=== PATIENT | female | born 2000 | race Hispanic/Latino ===

== ENCOUNTER 2021-05-04 10:59 | Emergency (ER) | payer MEDICAID, SELFPAY ==
[2021-05-04 11:15] VITALS: BP 127/72; PULSE 84; RESP 16; TEMP 37.2; O2SAT 100
--- NOTE | 2021-05-04 11:17 | ED.URI ---
HPI - URI/Sore Throat General Chief Complaint: Upper Respiratory Infection Stated Complaint: Sore Throat,Ear Pain Time Seen by Provider: 05/04/21 11:40 Source: patient and RN notes reviewed Mode of arrival: ambulatory Limitations: no limitations History of Present Illness HPI Narrative: 20-year-old female presents with concern for 4-day history of bilateral ear pain, worse on the right, sore throat, cough. She denies of breath, fever, chills, body aches, sweats, nasal congestion, runny nose. She denies Covid vaccination. Reports she had family members with similar symptoms 2 weeks ago. She denies intervention. She denies nausea, vomiting, diarrhea. MD elicited complaint: sore throat Related Data Allergies Allergy/AdvReac Type Severity Reaction Status Date / Time No Known Allergies Allergy Verified 05/04/21 11:24 Review of Systems Review of Systems: CONSTITUTIONAL: Denies malaise, chills, sweats, or fever. EYES: Denies visual changes, redness, or discharge. ENT: Denies rhinorrhea, congestion, sinus pain. Reports and sore throat. CARDIOVASCULAR: Denies chest pain, palpitations, or edema. RESPIRATORY: Reports cough. Denies dyspnea. GASTROINTESTINAL: Denies abdominal pain, nausea, vomiting, diarrhea SKIN: Denies rash or itching. MUSCULOSKELETAL: Denies myalgia. NEUROLOGIC: Denies headache. All systems reviewed & are unremarkable except as noted in HPI and below PMFSH Comments At time of signature, agree with nursing past medical, surgical, social and family history. There is no relevant family history pertinent to the presenting complaint Exam Narrative: GENERAL: Well-appearing, well-nourished, and in no acute distress. HEAD: Normocephalic EYES: PERRLA, conjunctivae clear ENT: Nares clear. Mucous membranes moist. TM pearly nava with dull light reflex bilaterally; no tragal tenderness. Oropharynx erythematous without lesions. Tonsils not enlarged and without exudate, no drooling, no hoarseness, no trismus, uvula midline. NECK: Supple. No lymphadenopathy CHEST: Clear to auscultation, breath sounds equal. No wheezing, rhonchi, rales, or stridor. No respiratory distress, speaks in full sentences. HEART: Regular rate and rhythm. No murmur heard. SKIN: Warm, dry, no rash. NEURO: Alert and oriented x3. PSYCH: Normal mood and affect Course Course Emergency Course: Patient is aware of diagnosis, understands and agrees to treatment plan. Anticipatory guidance given. Patient agrees to follow-up as directed and is aware of reasons to seek care at the emergency department. Portions of this record may have been created with voice recognition software Vital Signs Vital signs: Vital Signs Temperature 99.0 F 05/04/21 11:15 Pulse Rate 84 05/04/21 11:15 Respiratory Rate 16 05/04/21 11:15 Blood Pressure 127/72 05/04/21 11:15 Pulse Oximetry 100 05/04/21 11:15 Temperature 99.0 F 05/04/21 11:15 Pulse Rate 84 05/04/21 11:15 Respiratory Rate 16 05/04/21 11:15 Blood Pressure 127/72 05/04/21 11:15 Pulse Oximetry 100 05/04/21 11:15 Reviewed. MDM - URI/Sore Throat MDM Narrative Medical decision making narrative: Differential diagnosis considered: Jefferson virus, strep pharyngitis, allergic rhinitis, upper respiratory tract infection, sinusitis, rhinosinusitis, nasopharyngitis. viral pharyngitis, otitis media, otitis externa, pneumonia, bronchitis, viral cough syndrome, viral syndrome, and influenza. Exam findings show no acute concerns or changes; patient is non-toxic appearing and is in no distress. Patient is appropriate for outpatient treatment and follow-up. Lab Data Attestation: I reviewed the patient's lab results. Critical Care Time Critical Care Time Critical Care Time: No Discharge Plan Discharge Clinical Impression: Upper respiratory infection Qualifiers: URI type: unspecified viral URI Qualified Code(s): J06.9 - Acute upper respiratory infection, unspecified Patient Disposition: Home,
== END 2021-05-04 12:07 | disposition home or self-care (01) ==
PROVIDERS: Emergency Provider Nurse Practitioner; PCP Registered Nurse
DX: J06.9 Acute upper respiratory infection, unspecified (principal); Z20.822 Contact with and (suspected) exposure to COVID-19
CPT/HCPCS: 87081; 87426; 87880; 99203; C9803; G0463

== ENCOUNTER 2021-06-01 16:28 | Emergency (ER) | payer MEDICAID, SELFPAY ==
[2021-06-01 16:39] VITALS: BP 120/73; PULSE 80; RESP 16; TEMP 36.3; O2SAT 100
--- NOTE | 2021-06-01 17:08 | ED.URI ---
HPI - URI/Sore Throat General Chief Complaint: Upper Respiratory Infection Stated Complaint: Sore Throat,Ear Pain Time Seen by Provider: 06/01/21 17:14 Source: patient and RN notes reviewed Mode of arrival: ambulatory Limitations: language barrier (Patient's cousin translates) History of Present Illness HPI Narrative: 20-year-old female presents with concern for sore throat, ear pain for 3 to 4 days. Reports exposure to Covid for weeks ago, reports illness 1 month ago and tested negative for Covid. Reports the symptoms have resolved. She reports taking ibuprofen with mild pain relief. She denies headache, nausea, vomiting, diarrhea. Reports chronic sinus congestion for which she recently started taking antihistamines. Denies cough, shortness of breath, loss of sense of taste or smell. MD elicited complaint: sore throat and other (Ear pain) Related Data Allergies Allergy/AdvReac Type Severity Reaction Status Date / Time No Known Allergies Allergy Verified 05/04/21 11:24 Review of Systems Review of Systems: CONSTITUTIONAL: Denies malaise, chills, sweats, or fever. EYES: Denies visual changes, redness, or discharge. ENT: Reports chronic rhinorrhea, congestion. Reports otalgia and sore throat. CARDIOVASCULAR: Denies chest pain, palpitations, or edema. RESPIRATORY: Denies cough or dyspnea. GASTROINTESTINAL: Denies abdominal pain, nausea, vomiting, diarrhea SKIN: Denies rash or itching. MUSCULOSKELETAL: Denies myalgia. NEUROLOGIC: Denies headache. All systems reviewed & are unremarkable except as noted in HPI and below PMFSH Comments At time of signature, agree with nursing past medical, surgical, social and family history. There is no relevant family history pertinent to the presenting complaint Exam Narrative: GENERAL: Well-appearing, well-nourished, and in no acute distress. HEAD: Normocephalic EYES: PERRLA, conjunctivae clear ENT: Nares clear. Mucous membranes moist. TM pearly nava with dull light reflex bilaterally; no tragal tenderness. Oropharynx erythematous without lesions. Tonsils enlarged and with copious ward exudate, no drooling, no hoarseness, no trismus, uvula midline. NECK: Supple. No lymphadenopathy CHEST: Clear to auscultation, breath sounds equal. No wheezing, rhonchi, rales, or stridor. No respiratory distress, speaks in full sentences. HEART: Regular rate and rhythm. No murmur heard. SKIN: Warm, dry, no rash. NEURO: Alert and oriented x3. PSYCH: Normal mood and affect Course Course Emergency Course: Patient is aware of diagnosis, understands and agrees to treatment plan. Anticipatory guidance given. Patient agrees to follow-up as directed and is aware of reasons to seek care at the emergency department. Portions of this record may have been created with voice recognition software Vital Signs Vital signs: Vital Signs Temperature 97.3 F L 06/01/21 16:39 Pulse Rate 80 06/01/21 16:39 Respiratory Rate 16 06/01/21 16:39 Blood Pressure 120/73 06/01/21 16:39 Pulse Oximetry 100 06/01/21 16:39 Temperature 97.3 F L 06/01/21 16:39 Pulse Rate 80 06/01/21 16:39 Respiratory Rate 16 06/01/21 16:39 Blood Pressure 120/73 06/01/21 16:39 Pulse Oximetry 100 06/01/21 16:39 Reviewed. MDM - URI/Sore Throat MDM Narrative Medical decision making narrative: Differential diagnosis considered: Jefferson virus, strep pharyngitis, allergic rhinitis, upper respiratory tract infection, sinusitis, rhinosinusitis, nasopharyngitis. viral pharyngitis, otitis media, otitis externa, pneumonia, bronchitis, viral cough syndrome, viral syndrome, and influenza. Exam findings show no acute concerns or changes; patient is non-toxic appearing and is in no distress. Patient is appropriate for outpatient treatment and follow-up. Lab Data Attestation: I reviewed the patient's lab results. Lab results narrative: Rapid Covid negative, rapid strep negative. Will presumptively treat for strep pending culture. Critical
== END 2021-06-01 17:46 | disposition home or self-care (01) ==
PROVIDERS: Emergency Provider Nurse Practitioner; PCP Registered Nurse
DX: J03.90 Acute tonsillitis, unspecified (principal); Z20.822 Contact with and (suspected) exposure to COVID-19
CPT/HCPCS: 87081; 87426; 87880; 99213; C9803; G0463

== ENCOUNTER 2024-01-02 02:34 | Emergency (ER) | payer OTHER, SELFPAY ==
--- NOTE | ~2024-01-02 | CT_ITS ---
Non-contrast Head CT History: Headache Technique: Axial non-contrast imaging of the brain was performed. Dose reduction technique was used on this scan by utilizing automated exposure control and iterative reconstruction technique. The dose -length product (DLP) was 605.33 mGy-cm. Findings: There is no evidence of intracranial hemorrhage, mass lesion, or acute infarct. Brain par enchyma appears normal. The ventricles and subarachnoid spaces are normal in size. The calvarium ap pears normal. The visualized paranasal sinuses and mastoid air cells are clear. Impression: No significant abnormality seen. Reviewed, dictated and finalized at location . Impression: No significant abnormality seen.
--- NOTE | ~2024-01-02 | CT_ITS ---
Noncontrast CT scan of the cervical spine Technique: Multiple contiguous axial [address] images of the cervical spine were obtained and rec onstructed in 2D sagittal and coronal planes on the acquisition scanner. Dose reduction technique was used on this scan by utilizing automated exposure control, adjustment of the mA and/or kV according to patient size. The dose-length product (DLP) was 413.47 mGy-cm. Clinical History: Pain Findings: No fractures or dislocations. Unremarkable visualized bony structures. The intervertebral disc spaces are preserved. No prevertebral soft tissue swelling. Impression: No fracture or subluxation of the cervical spine. Reviewed, dictated and finalized at location . Impression: No fracture or subluxation of the cervical spine.
[2024-01-02 02:38] VITALS: BP 123/75; PULSE 74; RESP 18; TEMP 36.6; O2SAT 100
--- NOTE | 2024-01-02 03:19 | ED.HA ---
HPI - Headache General Chief Complaint: Headache Stated Complaint: headache, N/V, earache Time Seen by Provider: 01/02/24 02:50 Source: patient Mode of arrival: ambulatory Limitations: no limitations History of Present Illness HPI Narrative: 23-year-old female presenting with chief complaint of headache. It has been an ongoing issue for almost 2 months now. She has been seen in multiple emergency rooms for the same symptoms. She also complains of left ear pain with drainage from her left ear as well as pain in the back of her neck. Headache is diffuse and intermittent. No vision changes but she says she gets dizzy occasionally. Related Data Allergies Allergy/AdvReac Type Severity Reaction Status Date / Time No Known Allergies Allergy Verified 01/02/24 02:42 Review of Systems Review of Systems: All systems reviewed & are unremarkable except as noted in HPI and below Exam Narrative: Constitutional: Generally well appearing, no acute distress Head: Atraumatic, no deformities. Eyes: Pupils equal, round, and reactive to light. Neck: Supple, no tracheal deviation, no JVD. ENMT: Mucous membranes moist. Left tympanic membrane shows bulging, effusion, erythema. Non perforated. Right TM is normal Cardiovascular: S1, S2 auscultated. No murmurs, rubs, or gallops. No S3/S4. Normal Distal pulses. No peripheral edema. Respiratory: Lung sounds equal. No wheezes, rales, or rhonchi. Gastrointestinal: Abdomen was soft and non-tender. Non-distended. No rebound or guarding. Genitourinary: Deferred Musculoskeletal: Normal muscle tone and bulk. No obvious deformities or tenderness over extremities. Skin: No rashes. Neurological: Strength 5/5 in extremities. Cranial nerves I-XII grossly intact. Distal sensation intact. Mental Status: Awake, alert and oriented x3. Follows commands Course Vital Signs Vital signs: Vital Signs Temperature 36.6 C 01/02/24 02:38 Pulse Rate 74 01/02/24 02:38 Respiratory Rate 18 01/02/24 02:38 Blood Pressure 123/75 01/02/24 02:38 Pulse Oximetry 100 01/02/24 02:38 Oxygen Delivery Room Air 01/02/24 02:38 Temperature 36.6 C 01/02/24 02:38 Pulse Rate 74 01/02/24 02:38 Respiratory Rate 18 01/02/24 02:38 Blood Pressure 123/75 01/02/24 02:38 Pulse Oximetry 100 01/02/24 02:38 Oxygen Delivery Room Air 01/02/24 02:38 MDM - Headache MDM Narrative Medical decision making narrative: Well-appearing 23-year-old female presenting for multiple complaints including headache for over 1 month, left ear pain and drainage, and a lump with pain in the back of her neck. On exam she has no evidence of any lump in the back of her neck but she has some mild tenderness around the C-spine upper region. She has some effusion and erythema on her left TM which look like otitis. Otherwise normal neurological exam and well-appearing. Patient is very anxious about her symptoms, wants extensive testing done so we will obtain CT imaging of head and C-spine, labs. Given migraine cocktail. Labs and imaging reviewed, all unremarkable. Patient has not vomited since she arrived. She appears very well. Stable for discharge. Given prescription for Augmentin for the ear infection as well as Zofran and naproxen. Pt feeling improved and would like to go home at this point. Return precautions were given to the patient include any new or worsening symptoms or development of and not limited to any chest pain, shortness of breath, lightheadedness, abdominal pain, fevers, chills. Patient understands and agrees. They are to follow-up with her PCP. All questions were answered. I reviewed the patient's vital signs, history, allergies, and labs and imaging workup. Lab Data 01/02/24 03:45 01/02/24 03:45 Labs: Lab Results 01/02/24 01/02/24 Range/Units 03:45 03:57 WBC 8.3 (4.5-10.0) K/mm3 RBC 4.28 (4.2-5.4) M/mm3 Hgb 11.5 L (12.0-15.0) g/dL Hct 34.7 L (
[2024-01-02] MEDS: SODIUM CHLORIDE 0.9% IV 1,000 ML 999 ML IV CONT (03:42)
[2024-01-02] MEDS: METOCLOPRAMIDE HCL INJ 10 MG/2 ML VIAL IV PUSH (03:43)
[2024-01-02] MEDS: KETOROLAC 15 MG/ML VIAL (*BKC) IV PUSH (03:43)
[2024-01-02 03:56] LABS: Basophils Percent Auto 0.2 % (0.2-1.2); Eosinophils Absolute Auto 0.1 K/mm3 (0-0.3); Hematocrit 34.7 % (37.0-47.0); Hemoglobin 11.5 g/dL (12.0-15.0); Immature Granulocyte Absolute 0.01 K/mm3 (0.00-0.031); Immature Granulocyte Percent A 0.1 % (0-0.5); Lymphocytes Absolute Auto 2.91 K/mm3 (0.9-3.2); Lymphocytes Percent Auto 35.1 % (18.3-44.2); Mean Corpuscular HGB Conc 33.1 g/dl (32-36); Mean Corpuscular Hemoglobin 26.9 pg (26-34); Mean Corpuscular Volume 81.1 fl (80-100); Mean Platelet Volume 9.9 fl (7.4-10.4); Monocytes Absolute Auto 0.7 K/mm3 (0.1-0.6); Monocytes Percent Auto 8.2 % (2.6-8.5); Neutrophils Absolute Auto 4.6 K/mm3 (1.3-6.7); Neutrophils Percent Auto 55.4 % (45.5-73.1); Platelet Count Result 298 k/mm3 (150-375); Red Blood Count 4.28 M/mm3 (4.2-5.4); White Blood Count 8.3 K/mm3 (4.5-10.0)
[2024-01-02 04:14] LABS: Alanine Aminotransferase 22 U/L (6-35); Alkaline Phosphatase 80 U/L (38-126); Anion Gap 11 mmol/L (4-12); Aspartate Amino Transferase 27 U/L (14-36); Bilirubin,Total 0.7 mg/dL (0.2-1.3); Blood Urea Nitrogen 14 mg/dL (7-17); Carbon Dioxide 20 mmol/L (22-30); Chloride 107 mmol/L (98-107); Estimated Glomerular Filt Rate > 60; Glucose 106 mg/dL (65-110); Potassium 3.8 mmol/L (3.4-5.0); Sodium 138 mmol/L (137-145)
[2024-01-02 04:21] LABS: Appearance Urine Clear (Clear); Bilirubin Urine Negative (Negative); Blood Urine Negative (Negative); Color Urine Yellow (Yellow); Glucose Urine UA Negative (Negative); Ketones Urine Negative (Negative); Leukocyte Esterase Ur Negative LEU/UL (Negative); Nitrate Urine Negative (Negative); Protein Urine Negative (Negative); Specific Grav Ur 1.021 (1.001-1.035); Urobilinogen Urine 0.2 mg/dL (<2.0); pH Urine 5.5 (5.0-9.0)
[2024-01-02 04:22] LABS: Pregnancy On Board Control Positive; Urine Pregnancy Test Negative
[2024-01-02 04:30] LABS: Add Urine Microscopic? NO
== END 2024-01-02 04:58 | disposition home or self-care (01) ==
PROVIDERS: Emergency Provider Emergency Medicine
DX: R51.9 Headache, unspecified (principal); H66.92 Otitis media, unspecified, left ear
CPT/HCPCS: 36415; 70450; 72125; 80053; 81003; 81025; 85025; 96361; 96374; 96375; 99284; J1885; J2765; J7030